=== PATIENT | female | born 1990 | race Two or more races ===

== ENCOUNTER 2016-09-11 18:46 | Emergency (ER) | payer SELFPAY ==
[~2016-09-11] VITALS: Ht 170.2 cm; Wt 64.9 kg
--- NOTE | 2016-09-11 19:10 | NUR ---
to bed 1 ambulatory c/o headache with R jaw numbness. pt aaox4 no acute distress noted, resp even and unlabored. pupils perrl, pt able to move all extremities well with bilateral equal airline hostess. place pt on cardiac monitoring, continuous pox. pending er md blanco.
--- NOTE | 2016-09-11 19:17 | NUR ---
CARLA NICOLE AT BEDSIDE TO SO BAKER.
[2016-09-11 19:39] LABS: BASOPHILS % (AUTO) 0.5 % (0.0-2.0); EOSINOPHILS # (AUTO) 0.1 /CMM (0.0-0.7); EOSINOPHILS % (AUTO) 1.3 % (0.0-6.0); HEMATOCRIT 40 % (33-45); HEMOGLOBIN 13.7 g/dL (11.5-14.8); LYMPHOCYTES % (AUTO) 30.5 % (20.0-44.0); MEAN CORPUSCULAR HEMOGLOBIN 29 PG (26.0-33.0); MEAN CORPUSCULAR HGB CONC 34 g/dl (31.0-36.0); MEAN CORPUSCULAR VOLUME 84 fL (82-100); MONOCYTES # (AUTO) 0.5 /CMM (0.1-1.30); MONOCYTES % (AUTO) 7.4 % (2.0-12.0); NEUTROPHILS # (AUTO) 4.1 /CMM (1.8-8.9); NEUTROPHILS % (AUTO) 60.3 % (43.0-81.0); PLATELET COUNT (AUTO) 226 /CMM (150-450); RDW COEFFICIENT OF VARIATION 11.8 (11.5-15.0); RED BLOOD CELL COUNT(AUTO) 4.76 MIL/uL (4.0-5.2); WHITE BLOOD COUNT (AUTO) 6.7 K/uL (4.3-11.0)
[2016-09-11 19:51] LABS: CALCIUM, SERUM 9.2 mg/dL (8.5-10.1); CREATININE 0.7 mg/dL (0.6-1.3); POTASSIUM 3.6 mmol/L (3.5-5.1)
[2016-09-11 19:55] LABS: INR 0.97 (0.87-1.13); PROTHROMBIN TIME 10.1 SECS (9.5-12.7)
--- NOTE | 2016-09-11 20:51 | NUR ---
IV removed. Catheter intact and site benign. Pressure and 4x4 applied to site. No bleeding noted. Patient discharged to home in stable condition. Written and verbal after care instructions given. Patient verbalizes understanding of instruction. ambulatory with a steady gait noted. pt aaox4 no acute distress noted, resp even and unlabored.
[2016-09-11 20:54] VITALS: BP 112/62
== END 2016-09-11 21:01 | disposition home or self-care (01) ==
LOC: ER 18:48
DX: R51 Headache (principal); R79.1 Abnormal coagulation profile
CPT/HCPCS: 36415; 80048; 84703; 85025; 85378; 85730; 93005; 99285; A4606; Z7610